=== PATIENT | male | born 1985 | race Caucasian/White ===

== ENCOUNTER 2024-08-11 15:10 | Inpatient (IN) | payer MEDICAID, SELFPAY ==
[2024-08-11 15:15] VITALS: BP 155/104; PULSE 118; RESP 18; TEMP 36.8; O2SAT 95; BMI 34.2
--- NOTE | 2024-08-11 15:44 | XRR_ITS ---
PROCEDURE INFORMATION: Exam: XR Chest Exam date and time: 08/11/2024 3:51 PM Age: 39 years old Clinical indication: Cough and dyspnea; Additional info: Dyspnea/cough TECHNIQUE: Imaging protocol: Radiologic exam of the chest. Views: 1 view. COMPARISON: No relevant prior studies available. FINDINGS: Lungs: No consolidation. Probable small calcified granulomas in the right upper and lower lobes. Pleural spaces: No pleural effusion. No pneumothorax. Heart/Mediastinum: No cardiomegaly. Bones/joints: No acute findings. XR/XR chest 1V portable [id number] IMPRESSION: No acute chest findings.
--- NOTE | 2024-08-11 15:44 | PC.PHAR ---
called both pharmacies mainor kenny picked them up in 7-8 months
--- NOTE | 2024-08-11 15:48 | W.ED.PSYCHS ---
HPI - Psych General: Chief Complaint: Psychiatric Symptoms Stated Complaint: Off of Suboxon feeling unwell Time Seen by Provider: 08/11/24 15:26 History of Present Illness: 39-year-old male present to the emergency room complaining of not feeling well. Patient recently been in a sober living evidently he moved to this area to work. He was on Suboxone while at sober living but did not make arrangements to continue the Suboxone once he moved here. He has been off the Suboxone for several days she has had nausea and vomiting states he cannot think clearly. He has been confused and disoriented. He is also began having suicidal thoughts he is supposed to be on clonidine and Effexor per his report we are still working to verify this. According to his pharmacy search she was also on paliperidone extended release 3 mg. He has been out of all of these medicines for several days. Related Data Home Medications Medication Instructions Recorded Confirmed buprenorphine 8 mg-naloxone 2 mg See Rx Instructions .Route .COMPLEX 08/11/24 08/11/24 sublingual film (Suboxone) clonazepam 1 mg tablet 1 mg PO BID 08/11/24 08/11/24 Allergies Allergy/AdvReac Type Severity Reaction Status Date / Time No Known Allergies Allergy Verified 08/11/24 15:23 Review of Systems Const: Denies: fever(s) or chills Card: Denies: chest pain Resp: Denies: dyspnea GI: Reports: nausea and vomiting; Denies: abdominal pain : Denies: dysuria, urinary frequency or urinary urgency Musc: Denies: neck pain or back pain Skin/Breast: Denies: rash Physical Exam Const: COMMON NORMALS: no acute distress GENERAL APPEARANCE: cooperative and comfortable ORIENTATION/CONSCIOUSNESS: Yes awake, Yes oriented to person, Yes oriented to place and Yes oriented to time HENMT: COMMON NORMALS: normocephalic, atraumatic and hearing grossly normal bilaterally HEAD & SCALP: normocephalic and atraumatic Resp: COMMON NORMALS: normal respiratory effort, No retractions, No use of accessory muscles and clear to auscultation bilaterally AUSCULTATION: clear to auscultation bilaterally Cardio: COMMON NORMALS: regular rate, regular rhythm and No murmurs present (Cardio) RATE: regular rate RHYTHM: regular rhythm GI: COMMON NORMALS: Soft to palpation and No hepatosplenomegaly present AUSCULTATION: Yes normoactive bowel sounds PALPATION: Yes Soft to palpation, No Tenderness to palpation present (GI), No Guarding due to palpation present (GI) and Yes No hepatosplenomegaly present Extremity: COMMON NORMALS: normal to inspection, capillary refill normal, no clubbing, cyanosis or edema, no calf tenderness and no pedal edema Neuro: SENSORIUM/ORIENTATION: Yes oriented to person, Yes oriented to place and Yes oriented to time OTHER: No focal neurologic deficits Skin: COMMON NORMALS: no rashes or lesions noted GENERAL SKIN EXAM: no rashes or lesions noted Course Vital Signs: Vital signs: Vital Signs Temperature 98.7 F 08/11/24 17:15 Pulse Rate 96 08/11/24 17:15 Respiratory Rate 18 08/11/24 17:15 Blood Pressure 128/84 08/11/24 17:15 Pulse Oximetry 94 08/11/24 17:15 Oxygen Delivery Me thod Room Air 08/11/24 15:15 MDM - Psych Medical Decision Making Admit for suicidal ideation. I think is exacerbated by him being off of his medications and off of his Suboxone. According to pharmacy records he was also previously on paliperidone which she is also not been taking. Will add admit the patient to MPU under 96-hour hold discussed with Dr. Murray he is in agreement orders written Lab Data I reviewed the patient's lab results. 08/11/24 15:49 08/11/24 15:49 Radiology Impressions Chest X-Ray 08/11/24 15:44 IMPRESSION: No acute chest findings. Laboratory Results WBC 6.90 10^3/uL (3.29-11.43) 08/11/24 15:49 RBC 4.95 10^6/uL (3.85-5.65) 08/11/24 15:49 Hgb 15.60 g/dL (11.27-16.99) 08/11/24 15:49 Hct 45.6 % (37-53) 08/11/24 15:49 MCV 92.1 fl (82-101) 08/11/24 15:49 MCH 31.5 pg (27-33) 08/11/24 15:49 MCHC 34.2 g/dL (30-55) 08/11/24 15:49 RDW 12.0 % (12.1-15.1) L 08/11/24 15:49 Plt Count 247 10^3/cmm (157-399) 08/11/24 15:49 MPV 9.7 fL (7.4-10.4) 08/11/24 15:49 Neut % (Auto) 72.1 % 08/11/24 15:49 Lymph % (Auto) 19.3 % 08/11/24 15:49 [place] % (Auto) 6.1 % 08/11/24 15:49 Eos % (Auto) 1.2 % 08/11/24 15:49 Baso % (Auto) 0.9 % 08/11/24 15:49 Neut # (Auto) 4.98 10^3/uL (1.8-7.7) 08/11/24 15:49 Lymph # (Auto) 1.3 10^3/uL (0.8-4.8) 08/11/24 15:49 [place] # (Auto) 0.4 10^3/uL (0.2-0.9) 08/11/24 15:49 Eos # (Auto) 0.1 10^3/uL (0.0-0.8) 08/11/24 15:49 Baso # (Auto) 0.1 10^3/uL (0.0-0.1) 08/11/24 15:49 Nucleated RBC % (auto) 0 % 08/11/24 15:49 Nucleated RBCs # 0.0 /100WBC 08/11/24 15:49 Sodium 138 mmol/L (136-145) 08/11/24 15:49 Potassium 3.9 mmol/L (3.5-5.1) 08/11/24 15:49 Chloride 100 mmol/L (98-107) 08/11/24 15:49 Carbon Dioxide 19 mmol/L (22-29) L 08/11/24 15:49 Anion Gap 22.9 (5-19) H 08/11/24 15:49 BUN 19 mg/dL (6-20) 08/11/24 15:49 Creatinine 0.8 mg/dL (0.7-1.2) 08/11/24 15:49 GFR Calculation 107.6 mL/min (90-130) 08/11/24 15:49 Glucose 85 mg/dL (65-115) 08/11/24 15:49 Calculated Osmolality 288 mOsm/kg (285-295) 08/11/24 15:49 Calcium 8.9 mg/dL (8.5-10.5) 08/11/24 15:49 Total Bilirubin 0.6 mg/dL (0.15-1.2) 08/11/24 15:49 AST 22 U/L (0-40) 08/11/24 15:49 ALT 22 U/L (0-41) 08/11/24 15:49 Alkaline Phosphatase 51 U/L (40-130) 08/11/24 15:49 Total Protein 7.2 g/dL (6.6-8.7) 08/11/24 15:49 Albumin 4.1 g/dL (3.5-5.2) 08/11/24 15:49 Globulin 3.1 g/dL (1.3-4.6) 08/11/24 15:49 Salicylates < 0.3 mg/dL (3-10) L 08/11/24 15:49 Acetaminophen < 5.0 ug/mL (10-30) L 08/11/24 15:49 All radiology interpretation(s) finalized by discharge Discharge Plan Discharge Patient Disposition: Admitted As Inpatient Admit Provider: Jagjit Lam Clinical Impression: Suicidal ideation, Depression Condition: Stable Coding Level of Care Code ED Refrigeration Unit Repairer for Eric Fritz
[2024-08-11 15:55] LABS: Basophils # 0.1 10^3/uL (0.0-0.1); Basophils % 0.9 %; Eosinophils # 0.1 10^3/uL (0.0-0.8); Eosinophils % 1.2 %; Hematocrit 45.6 % (37-53); Lymphocytes # 1.3 10^3/uL (0.8-4.8); Lymphocytes % 19.3 %; Mean Corpuscular HGB Conc 34.2 g/dL (30-55); Mean Corpuscular Hemoglobin 31.5 pg (27-33); Mean Corpuscular Volume 92.1 fl (82-101); Mean Platelet Volume 9.7 fL (7.4-10.4); Monocytes # 0.4 10^3/uL (0.2-0.9); Monocytes % 6.1 %; Neutrophils # 4.98 10^3/uL (1.8-7.7); Neutrophils % 72.1 %; Nucleated Red Blood Cells % 0 %; Platelet Count 247 10^3/cmm (157-399); Red Blood Count 4.95 10^6/uL (3.85-5.65)
[2024-08-11 16:12] LABS: Alanine Aminotransferase 22 U/L (0-41); Albumin Level 4.1 g/dL (3.5-5.2); Alkaline Phosphatase 51 U/L (40-130); Anion Gap 22.9 (5-19); Aspartate Amino Transferase 22 U/L (0-40); Blood Urea Nitrogen 19 mg/dL (6-20); Calcium 8.9 mg/dL (8.5-10.5); Carbon Dioxide 19 mmol/L (22-29); Chloride 100 mmol/L (98-107); Creatinine Clr Calc Pharmacy 148.1915; Globulin 3.1 g/dL (1.3-4.6); Glomerular Filtration Rate 107.6 mL/min (90-130); Glucose 85 mg/dL (65-115); Osmolality Calculated 288 mOsm/kg (285-295); Potassium 3.9 mmol/L (3.5-5.1); Sodium 138 mmol/L (136-145); Total Bilirubin 0.6 mg/dL (0.15-1.2); Total Protein 7.2 g/dL (6.6-8.7)
[2024-08-11 16:13] LABS: Acetaminophen < 5.0 ug/mL (10-30); Salicylate < 0.3 mg/dL (3-10)
--- NOTE | 2024-08-11 16:23 | ECG_ITS ---
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 [email or web address]
[2024-08-11] MEDS: OLANZapine 10 mg TABLET PO (16:36)
[2024-08-11 17:15] VITALS: BP 128/84; BP 155/104; PULSE 118; PULSE 96; RESP 18; TEMP 37.1; O2SAT 94; O2SAT 95
[2024-08-11] MEDS: baclofen 10 mg Tablet PO (18:08)
[2024-08-11] MEDS: propranolol 20 mg Tablet PO (18:08)
[2024-08-11 18:12] LABS: Amphetamines Screen Urine Positive (Negative); Barbiturates Screen Urine Negative (Negative); Benzodiazepines Screen Urine Positive (Negative); Cocaine Screen Urine Negative (Negative); Opiate Screen Urine Negative (Negative); PCP Screen Urine Negative (Negative); THC Screen Urine Positive (Negative)
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
--- NOTE | 2024-08-11 18:50 | PC.NURSE ---
96 hr rights reviewed with patient @1635 with assistance of [facility] security controls assessor Lai Norris All education reviewed. Only verbalized concern stated by pt was if his meds ordered by an [facility] primary care physician would be ordered for him while he is inpatient. HS educated that once admitted and transferred down to NPU bed assignment, and once the psychiatrist does his initial intake, meds would be ordered based off patient needs and history. Patient copy left @bedside with patient. Pt provided with a sandwich and soda while waiting on dinner tray to arrive. No further needs at this time.
[2024-08-11 19:28] LABS: Alcohol Level < 10 mg/dL (0-10)
[2024-08-11 19:52] VITALS: BP 103/68; PULSE 69; RESP 18; TEMP 36.7; O2SAT 95
[2024-08-11] MEDS: hyDROXYzine 25 mg Capsule 50 MG PO (21:54)
[2024-08-11] MEDS: doxepin 50 mg Capsule PO (21:54)
[2024-08-12 06:00] VITALS: BP 110/73; PULSE 54; RESP 17; O2SAT 94
[2024-08-12] MEDS: venlafaxine ER (24HR) 37.5 mg Capsule PO (08:22)
[2024-08-12 14:00] VITALS: BP 123/69; PULSE 58; RESP 18; TEMP 36.8; O2SAT 95
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
[2024-08-12 19:43] VITALS: BP 109/57; PULSE 66; RESP 17; TEMP 37.2; O2SAT 96
[2024-08-12] MEDS: hyDROXYzine 25 mg Capsule 50 MG PO (23:22)
[2024-08-12] MEDS: doxepin 50 mg Capsule PO (23:22)
[2024-08-13] MEDS: OLANZapine 5 mg ODT PO ×2 (00:32→17:11)
[2024-08-13] MEDS: baclofen 10 mg Tablet PO ×2 (00:34→09:26)
[2024-08-13 06:00] VITALS: BP 108/67; PULSE 60; RESP 17; TEMP 36.7; O2SAT 94
[2024-08-13] MEDS: propranolol 20 mg Tablet PO (09:26)
[2024-08-13] MEDS: venlafaxine ER (24HR) 37.5 mg Capsule PO (09:26)
--- NOTE | 2024-08-13 11:14 | P.NPUPN_ITS ---
Subjective NPU 2 Subjective: Patient presented today reporting that he is feeling all right. He reports that overall restarting the medication is felt helpful and he denied any concerns with that. He continues to lobby for restarting Suboxone and we continue to discuss our policy not to start it without verification of dosing and when his last dose had been. Or he is when his last prescription was. Otherwise he denied any side effects of medication. Mental Status Exam 2 MSE Comments: This is an obese white male in hospital scrubs with limited grooming and eye contact. No abnormal movements except for psychomotor retardation. Mostly cooperative with exam in mild to moderate distress. Speech was slightly decreased rate and volume. Mood described as okay, affect subdued. Thought process linear. Thought content: Patient denied current suicidal ideation but endorsed that leading to his hospitalization, he denied homicidal ideation, there were no delusions reported but paranoia and guardedness noted, he denied active auditory visual hallucinations at this time but has dealt with that in the past. Attention and concentration were limited and memory appeared mostly reliable but none were formally tested. He is alert and oriented times person and place. Insight and judgment are limited and impulse control impaired. Vitals/I&O/Wt Last Vital Signs Temp 98.0 F 08/13/24 06:00 Pulse 60 08/13/24 06:00 Resp 17 08/13/24 06:00 BP 108/67 08/13/24 06:00 Pulse Ox 94 08/13/24 06:00 O2 Del Method Room Air 08/12/24 14:00 Weight last 48 hrs Weight 98.611 kg Weight 105.233 kg Data NPU 08/11/24 15:49 08/11/24 15:49 A&P Assessment and plan (1) Suicidal ideation: (2) Depression: (3) Anxiety: (4) Opioid use disorder, moderate, dependence: (5) Cannabis use disorder, moderate, dependence: (6) Methamphetamine use disorder, moderate, dependence: Plan This is a 39-year-old white male with a reported history of anxiety, depression, addiction and recent lethality and discontinuation of his medication with increase in symptoms leading to his hospitalization. The patient is experiencing substance use disorder and psychiatric conditions, including depression and anxiety. He has recently discontinued his pharmacotherapy and is not experiencing symptomatic improvement. He has a history of suicidal ideation and severe anxiety, including paranoia. He also reported experiencing obsessive- compulsive disorder-like symptoms. He has a family history of psychiatric disorders and substance use disorder on both maternal and paternal sides. 1. Restarted medications. 2. Awaiting confirmation to consider restarting Suboxone. 3. Encourage individual, group and milieu therapy. 4. Continue every 15 minute checks for safety. 5. Encourage sober living treatment after discharge at the highest level of care to which he is willing to commit. 6. Obtain collateral information. Involuntary Hold Information 2 96 Hour Hold: 96 Hour Involuntary Admission: Yes 96 Hour Hold Ending Date: 08/17/24 96 Hour Hold Ending Time: 16:30 Other Hold: Hold End Date: 08/17/24 Attestations NPU 2 Medical Necessity Statement*: Inpatient hospitalization is medically necessary and the clinically appropriate intervention at this time. We will monitor/initiate medications and make changes as indicated. Likely length of stay 5 to 7 days. Coding Level of Care Code Acute Code for [facility] Fwd Diagnoses Suicidal ideation R45.851 Depression F32.A Anxiety F41.9 Opioid use disorder, moderate, dependence F11.20 Cannabis use disorder, moderate, dependence F12.20 Methamphetamine use disorder, moderate, dependence F15.20
[2024-08-13 13:46] VITALS: BP 107/69; PULSE 62; RESP 16; TEMP 36.9; O2SAT 94
[2024-08-13 20:25] VITALS: BP 120/58; PULSE 58; RESP 18; TEMP 36.8; O2SAT 94
[2024-08-14 06:00] VITALS: BP 139/80; PULSE 60; RESP 16; TEMP 36.7; O2SAT 96
[2024-08-14] MEDS: venlafaxine ER (24HR) 37.5 mg Capsule PO (08:25)
--- NOTE | 2024-08-14 11:14 | W.PM.NPUPNS ---
Subjective NPU Subjective: Patient presented today reporting that he is doing okay. He was pleased that the information surrounding his medication, specifically his Suboxone was identified allowing that to be restarted. He reports that he is glad that he came to the hospital and is taking his medication and is hoping to feel better soon. He denied any side effects to his medication. Mental Status Exam MSE Comments: This is an obese white male in hospital scrubs with limited grooming and eye contact. No abnormal movements except for psychomotor retardation. Mostly cooperative with exam in mild to moderate distress. Speech was slightly decreased rate and volume. Mood described as okay, affect subdued. Thought process linear. Thought content: Patient denied current suicidal ideation but endorsed that leading to his hospitalization, he denied homicidal ideation, there were no delusions reported but paranoia and guardedness noted, he denied active auditory visual hallucinations at this time but has dealt with that in the past. Attention and concentration were limited and memory appeared mostly reliable but none were formally tested. He is alert and oriented times person and place. Insight and judgment are limited and impulse control impaired. Vitals/I&O/Wt Last Vital Signs Temp 98.1 F 08/14/24 06:00 Pulse 60 08/14/24 06:00 Resp 16 08/14/24 06:00 BP 139/80 08/14/24 06:00 Pulse Ox 96 08/14/24 06:00 O2 Del Method Room Air 08/13/24 13:46 Weight last 48 hrs Weight 98.611 kg Data NPU 08/11/24 15:49 08/11/24 15:49 A&P Assessment and plan (1) Suicidal ideation: (2) Depression: (3) Anxiety: (4) Opioid use disorder, moderate, dependence: (5) Cannabis use disorder, moderate, dependence: (6) Methamphetamine use disorder, moderate, dependence: Plan This is a 39-year-old white male with a reported history of anxiety, depression, addiction and recent lethality and discontinuation of his medication with increase in symptoms leading to his hospitalization. The patient is experiencing substance use disorder and psychiatric conditions, including depression and anxiety. He has recently discontinued his pharmacotherapy and is not experiencing symptomatic improvement. He has a history of suicidal ideation and severe anxiety, including paranoia. He also reported experiencing obsessive-compulsive disorder-like symptoms. He has a family history of psychiatric disorders and substance use disorder on both maternal and paternal sides. 1. Restarted medications. 2. Awaiting confirmation to consider restarting Suboxone. We were able to confirm his Suboxone dose and him having an active prescription. So that was restarted as well. 3. Encourage individual, group and milieu therapy. 4. Continue every 15 minute checks for safety. 5. Encourage sober living treatment after discharge at the highest level of care to which he is willing to commit. 6. Obtain collateral information. Involuntary Hold Information 96 Hour Hold: 96 Hour Involuntary Admission: Yes 96 Hour Hold Ending Date: 08/17/24 96 Hour Hold Ending Time: 16:30 Other Hold: Hold End Date: 08/17/24 Attestations NPU Medical Necessity Statement*: Inpatient hospitalization is medically necessary and the clinically appropriate intervention at this time. We will monitor/initiate medications and make changes as indicated. Likely length of stay 5 to 7 days. Coding Level of Care Code Acute Code for [facility] Fwd Diagnoses Suicidal ideation R45.851 Depression F32.A Anxiety F41.9 Opioid use disorder, moderate, dependence F11.20 Cannabis use disorder, moderate, dependence F12.20 Methamphetamine use disorder, moderate, dependence F15.20
[2024-08-14] MEDS: hyDROXYzine 25 mg Capsule 50 MG PO ×2 (11:58→23:11)
[2024-08-14 14:00] VITALS: BP 138/71; PULSE 76; RESP 16; TEMP 36.6; O2SAT 96
[2024-08-14] MEDS: nicotine 4 mg lozenge MUCOUS MEM ×2 (18:19→22:04)
[2024-08-14] MEDS: nicotine 2 mg Gum BUCCAL (19:46)
[2024-08-14] MEDS: doxepin 50 mg Capsule PO (19:46)
[2024-08-14] MEDS: propranolol 20 mg Tablet PO (19:46)
[2024-08-14] MEDS: buprenorphine-naloxone 4-1 mg Film 2 EACH SUBLINGUAL (19:47)
[2024-08-14 20:09] VITALS: BP 103/79; PULSE 83; RESP 16; TEMP 36.9; O2SAT 98
[2024-08-14 22:00] VITALS: BP 121/81; PULSE 101; RESP 12; TEMP 36.9; O2SAT 91
[2024-08-15] MEDS: OLANZapine 5 mg ODT PO ×2 (00:33→11:39)
[2024-08-15 06:00] VITALS: BP 80/47; PULSE 57; RESP 16; TEMP 36.4; O2SAT 92
[2024-08-15] MEDS: nicotine 4 mg lozenge MUCOUS MEM ×4 (06:38→17:53)
[2024-08-15] MEDS: buprenorphine-naloxone 4-1 mg Film 2 EACH SUBLINGUAL ×3 (08:40→20:38)
[2024-08-15] MEDS: venlafaxine ER (24HR) 37.5 mg Capsule PO (08:40)
[2024-08-15] MEDS: baclofen 10 mg Tablet PO (08:40)
[2024-08-15] MEDS: propranolol 20 mg Tablet PO ×2 (12:37→20:46)
[2024-08-15] MEDS: nicotine 2 mg Gum BUCCAL (12:38)
--- NOTE | 2024-08-15 13:35 | P.NPUPN_ITS ---
Subjective NPU 2 Subjective: Patient presented today reporting that he is doing okay. He continues to express concerns about anxiety and we discussed being uncomfortable with any plans for controlled substances. He reports that the Vistaril has not been affected. We discussed the risks, benefits and alternatives to considering Neurontin and he understood and agreed to proceed as is documented in this note. He reported previously being on Lyrica which we discussed that we would likely not be prescribing. He denied any side effects to his medications. Mental Status Exam 2 MSE Comments: This is an obese white male in hospital scrubs with limited grooming and eye contact. No abnormal movements except for psychomotor retardation. Mostly cooperative with exam in mild to moderate distress. Speech was slightly decreased rate and volume. Mood described as okay, affect subdued. Thought process linear. Thought content: Patient denied current suicidal ideation but endorsed that leading to his hospitalization, he denied homicidal ideation, there were no delusions reported but paranoia and guardedness noted, he denied active auditory visual hallucinations at this time but has dealt with that in the past. Attention and concentration were limited and memory appeared mostly reliable but none were formally tested. He is alert and oriented times person and place. Insight and judgment are limited and impulse control impaired. Vitals/I&O/Wt Last Vital Signs Temp 97.5 F L 08/15/24 06:00 Pulse 57 L 08/15/24 06:00 Resp 16 08/15/24 06:00 BP 80/47 08/15/24 06:00 Pulse Ox 92 08/15/24 06:00 O2 Del Method Room Air 08/15/24 06:00 Data NPU 08/11/24 15:49 08/11/24 15:49 A&P Assessment and plan (1) Suicidal ideation: (2) Depression: (3) Anxiety: (4) Opioid use disorder, moderate, dependence: (5) Cannabis use disorder, moderate, dependence: (6) Methamphetamine use disorder, moderate, dependence: Plan This is a 39-year-old white male with a reported history of anxiety, depression, addiction and recent lethality and discontinuation of his medication with increase in symptoms leading to his hospitalization. The patient is experiencing substance use disorder and psychiatric conditions, including depression and anxiety. He has recently discontinued his pharmacotherapy and is not experiencing symptomatic improvement. He has a history of suicidal ideation and severe anxiety, including paranoia. He also reported experiencing obsessive- compulsive disorder-like symptoms. He has a family history of psychiatric disorders and substance use disorder on both maternal and paternal sides. 1. Restarted medications. Will consider possibly starting Neurontin for anxiety. Concerns about his affinity for medications that have risk of abuse as solutions for his symptoms exists. 2. Awaiting confirmation to consider restarting Suboxone. We were able to confirm his Suboxone dose and him having an active prescription. So that was restarted as well. 3. Encourage individual, group and milieu therapy. 4. Continue every 15 minute checks for safety. 5. Encourage sober living treatment after discharge at the highest level of care to which he is willing to commit. 6. Obtain collateral information. Involuntary Hold Information 2 96 Hour Hold: 96 Hour Involuntary Admission: Yes 96 Hour Hold Ending Date: 08/17/24 96 Hour Hold Ending Time: 16:30 Other Hold: Hold End Date: 08/17/24 Attestations NPU 2 Medical Necessity Statement*: Inpatient hospitalization is medically necessary and the clinically appropriate intervention at this time. We will monitor/initiate medications and make changes as indicated. Likely length of stay 4-6 days. Coding Level of Care Code Acute Code for g Fwd Diagnoses Suicidal ideation R45.851 Depression F32.A Anxiety F41.9 Opioid use disorder, moderate, dependence F11.20 Cannabis use disorder, moderate, dependence F12.20 Methamphetamine use disorder, moderate, dependence F15.20
[2024-08-15 14:00] VITALS: BP 113/75; PULSE 63; RESP 16; TEMP 36.7; O2SAT 96
[2024-08-15] MEDS: hyDROXYzine 25 mg Capsule 50 MG PO (17:54)
[2024-08-15 19:46] VITALS: BP 152/87; PULSE 67; RESP 18; TEMP 36.6; O2SAT 96
[2024-08-15] MEDS: doxepin 50 mg Capsule PO (20:46)
[2024-08-16 06:00] VITALS: BP 100/64; PULSE 60; RESP 16; TEMP 37; O2SAT 96
[2024-08-16] MEDS: buprenorphine-naloxone 4-1 mg Film 2 EACH SUBLINGUAL ×3 (08:44→20:35)
[2024-08-16] MEDS: venlafaxine ER (24HR) 37.5 mg Capsule PO (08:44)
[2024-08-16] MEDS: nicotine 4 mg lozenge MUCOUS MEM ×3 (10:07→14:25)
[2024-08-16] MEDS: OLANZapine 5 mg ODT PO (11:14)
[2024-08-16] MEDS: hyDROXYzine 25 mg Capsule 50 MG PO ×2 (12:44→20:34)
[2024-08-16] MEDS: haloperidol 5 mg Tablet PO (13:48)
[2024-08-16 14:00] VITALS: BP 124/74; PULSE 66; RESP 18; TEMP 36.6; O2SAT 95
--- NOTE | 2024-08-16 15:18 | PC.NURSE ---
ORDERS RECEIVED FOR COVID TEST FOR POSSIBLE PLACEMENT. ORDERS PLACED AND NURSE NOTIFIED TO COLLECT.
[2024-08-16 16:17] LABS: SARS Covid-2 Antigen Negative (Negative)
--- NOTE | 2024-08-16 17:57 | P.NPUPN_ITS ---
Subjective NPU 2 Subjective: Patient presented today reporting that he is trying to get into his previous program but now he has learned that he has to go to the bottom of the list since it is a subsidiary in a different area. He continues to have concerns about his sobriety if he does not go to a new program. He continues to endorse anxiety and we discussed the risks, benefits and alternatives of initiating Neurontin 100 mg p.o. 3 times daily he understood and agreed to proceed as is documented in his note he denied any side effects of medication. Mental Status Exam 2 MSE Comments: This is an obese white male in hospital scrubs with limited grooming and eye contact. No abnormal movements except for psychomotor retardation. Mostly cooperative with exam in mild distress. Speech was slightly decreased rate and volume. Mood described as okay, affect subdued. Thought process linear. Thought content: Patient denied current suicidal ideation but endorsed that leading to his hospitalization, he denied homicidal ideation, there were no delusions reported but paranoia and guardedness noted, he denied active auditory visual hallucinations at this time but has dealt with that in the past. Attention and concentration were limited and memory appeared mostly reliable but none were formally tested. He is alert and oriented times person and place. Insight and judgment are limited and impulse control impaired. Vitals/I&O/Wt Last Vital Signs Temp 97.9 F 08/16/24 14:00 Pulse 66 08/16/24 14:00 Resp 18 08/16/24 14:00 BP 124/74 08/16/24 14:00 Pulse Ox 95 08/16/24 14:00 O2 Del Method Room Air 08/16/24 06:00 Data NPU 08/11/24 15:49 08/11/24 15:49 A&P Assessment and plan (1) Suicidal ideation: (2) Depression: (3) Anxiety: (4) Opioid use disorder, moderate, dependence: (5) Cannabis use disorder, moderate, dependence: (6) Methamphetamine use disorder, moderate, dependence: Plan This is a 39-year-old white male with a reported history of anxiety, depression, addiction and recent lethality and discontinuation of his medication with increase in symptoms leading to his hospitalization. The patient is experiencing substance use disorder and psychiatric conditions, including depression and anxiety. He has recently discontinued his pharmacotherapy and is not experiencing symptomatic improvement. He has a history of suicidal ideation and severe anxiety, including paranoia. He also reported experiencing obsessive- compulsive disorder-like symptoms. He has a family history of psychiatric disorders and substance use disorder on both maternal and paternal sides. 1. Restarted medications. Will consider possibly starting Neurontin for anxiety. Concerns about his affinity for medications that have risk of abuse as solutions for his symptoms exists. 2. Awaiting confirmation to consider restarting Suboxone. We were able to confirm his Suboxone dose and him having an active prescription. So that was restarted as well. Initiate Neurontin 100 mg p.o. 3 times daily 3. Encourage individual, group and milieu therapy. 4. Continue every 15 minute checks for safety. 5. Encourage sober living treatment after discharge at the highest level of care to which he is willing to commit. 6. Obtain collateral information. Involuntary Hold Information 2 96 Hour Hold: 96 Hour Involuntary Admission: Yes 96 Hour Hold Ending Date: 08/17/24 96 Hour Hold Ending Time: 16:30 Other Hold: Hold End Date: 08/17/24 Attestations NPU 2 Medical Necessity Statement*: Inpatient hospitalization is medically necessary and the clinically appropriate intervention at this time. We will monitor/initiate medications and make changes as indicated. Likely length of stay 2-5 days. Coding Level of Care Code Acute Code for [facility] Fwd Diagnoses Suicidal ideation R45.851 Depression F32.A Anxiety F41.9 Opioid use disorder, moderate, dependence F11.20 Cannabis use disorder, moderate, dependence F12.20 Methamphetamine use disorder, moderate, dependence F15.20
[2024-08-16] MEDS: propranolol 20 mg Tablet PO (20:34)
[2024-08-16] MEDS: doxepin 50 mg Capsule PO (20:34)
[2024-08-16 20:54] VITALS: BP 102/64; PULSE 68; RESP 18; TEMP 36.6; O2SAT 96
[2024-08-17 06:00] VITALS: BP 105/70; PULSE 60; RESP 18; TEMP 36.4; O2SAT 96
[2024-08-17] MEDS: gabapentin 100 mg Capsule PO ×3 (09:18→20:54)
[2024-08-17] MEDS: buprenorphine-naloxone 4-1 mg Film 2 EACH SUBLINGUAL ×3 (09:18→20:54)
[2024-08-17] MEDS: hyDROXYzine 25 mg Capsule 50 MG PO ×3 (09:18→20:54)
[2024-08-17] MEDS: venlafaxine ER (24HR) 37.5 mg Capsule PO (09:18)
[2024-08-17] MEDS: nicotine 4 mg lozenge MUCOUS MEM ×3 (09:18→18:21)
[2024-08-17] MEDS: OLANZapine 5 mg ODT PO (12:31)
[2024-08-17 14:00] VITALS: BP 103/69; PULSE 66; RESP 18; TEMP 37; O2SAT 98
[2024-08-17] MEDS: nicotine 2 mg Gum BUCCAL (15:30)
[2024-08-17] MEDS: haloperidol 5 mg Tablet PO (16:10)
[2024-08-17 20:20] VITALS: BP 107/66; PULSE 67; RESP 17; TEMP 36.7; O2SAT 95
[2024-08-17] MEDS: baclofen 10 mg Tablet PO (20:54)
[2024-08-17] MEDS: doxepin 50 mg Capsule PO (20:54)
--- NOTE | 2024-08-17 21:29 | P.NPUPN_ITS ---
Subjective NPU 2 Subjective: Patient presented today continuing to report making every effort to find a place that he can be discharged to. He continues to report a desire to go to an alternative sober living treatment facility but has had no luck in identifying 1 with the help of the social work team. He continued to endorse anxiety and we discussed the risks, benefits and alternatives of possibly increasing his Neurontin tomorrow and he understood and agreed to proceed as is documented in this note. He denied any side effects to his medication. Mental Status Exam 2 MSE Comments: This is an obese white male in hospital scrubs with limited grooming and eye contact. No abnormal movements except for psychomotor retardation. Mostly cooperative with exam in mild distress. Speech was slightly decreased rate and volume. Mood described as okay, affect subdued. Thought process linear. Thought content: Patient denied current suicidal ideation but endorsed that leading to his hospitalization, he denied homicidal ideation, there were no delusions reported but paranoia and guardedness noted, he denied active auditory visual hallucinations at this time but has dealt with that in the past. Attention and concentration were limited and memory appeared mostly reliable but none were formally tested. He is alert and oriented times person and place. Insight and judgment are limited and impulse control impaired. Vitals/I&O/Wt Last Vital Signs Temp 98.1 F 08/17/24 20:20 Pulse 67 08/17/24 20:20 Resp 17 08/17/24 20:20 BP 107/66 08/17/24 20:20 Pulse Ox 95 08/17/24 20:20 O2 Del Method Room Air 08/17/24 06:00 Data NPU 08/11/24 15:49 08/11/24 15:49 A&P Assessment and plan (1) Suicidal ideation: (2) Depression: (3) Anxiety: (4) Opioid use disorder, moderate, dependence: (5) Cannabis use disorder, moderate, dependence: (6) Methamphetamine use disorder, moderate, dependence: Plan This is a 39-year-old white male with a reported history of anxiety, depression, addiction and recent lethality and discontinuation of his medication with increase in symptoms leading to his hospitalization. The patient is experiencing substance use disorder and psychiatric conditions, including depression and anxiety. He has recently discontinued his pharmacotherapy and is not experiencing symptomatic improvement. He has a history of suicidal ideation and severe anxiety, including paranoia. He also reported experiencing obsessive- compulsive disorder-like symptoms. He has a family history of psychiatric disorders and substance use disorder on both maternal and paternal sides. 1. Restarted medications. Will consider possibly starting Neurontin for anxiety. Concerns about his affinity for medications that have risk of abuse as solutions for his symptoms exists. 2. Awaiting confirmation to consider restarting Suboxone. We were able to confirm his Suboxone dose and him having an active prescription. So that was restarted as well. Initiate Neurontin 100 mg p.o. 3 times daily. Consider increase to 300 mg. 3. Encourage individual, group and milieu therapy. 4. Continue every 15 minute checks for safety. 5. Encourage sober living treatment after discharge at the highest level of care to which he is willing to commit. 6. Obtain collateral information. Involuntary Hold Information 2 96 Hour Hold: 96 Hour Involuntary Admission: Yes 96 Hour Hold Ending Date: 08/17/24 96 Hour Hold Ending Time: 16:30 Other Hold: Hold End Date: 08/17/24 Attestations NPU 2 Medical Necessity Statement*: Inpatient hospitalization is medically necessary and the clinically appropriate intervention at this time. We will monitor/initiate medications and make changes as indicated. Likely length of stay 1-4 days. Coding Level of Care Code Acute Code for [facility] Fwd Diagnoses Suicidal ideation R45.851 Depression F32.A Anxiety F41.9 Opioid use disorder, moderate, dependence F11.20 Cannabis use disorder, moderate, dependence F12.20 Methamphetamine use disorder, moderate, dependence F15.20
[2024-08-18 06:00] VITALS: BP 108/64; PULSE 59; RESP 17; TEMP 36.8; O2SAT 95
[2024-08-18] MEDS: nicotine 4 mg lozenge MUCOUS MEM ×5 (06:13→21:23)
[2024-08-18] MEDS: gabapentin 100 mg Capsule PO ×3 (08:40→21:22)
[2024-08-18] MEDS: venlafaxine ER (24HR) 37.5 mg Capsule PO (08:40)
[2024-08-18] MEDS: buprenorphine-naloxone 4-1 mg Film 2 EACH SUBLINGUAL ×3 (08:40→21:22)
[2024-08-18] MEDS: hyDROXYzine 25 mg Capsule 50 MG PO ×2 (10:14→15:49)
[2024-08-18 14:00] VITALS: BP 145/95; PULSE 78; RESP 18; TEMP 36.7; O2SAT 95
--- NOTE | 2024-08-18 15:24 | P.NPUPN_ITS ---
Subjective NPU 2 Subjective: Patient presented today reporting that he is doing okay but still having significant anxiety. He is working with the social work team on options for residential addiction treatment. He has 2 options but her most recent callback from 1 suggest that it would more likely be Wednesday and he may have a chance to get in the other rehab [facility] but they want no until Wednesday either. He denied any side effects to the medication and we discussed the risks, benefits and alternatives of increasing his Neurontin to 300 mg p.o. 3 times daily and he understood and agreed to proceed as is documented in this note. Mental Status Exam 2 MSE Comments: This is an obese white male in hospital scrubs with limited grooming and eye contact. No abnormal movements except for psychomotor retardation. Mostly cooperative with exam in mild distress. Speech was slightly decreased rate and volume. Mood described as okay, affect subdued. Thought process linear. Thought content: Patient denied current suicidal ideation but endorsed that leading to his hospitalization, he denied homicidal ideation, there were no delusions reported but paranoia and guardedness noted, he denied active auditory visual hallucinations at this time but has dealt with that in the past. Attention and concentration were limited and memory appeared mostly reliable but none were formally tested. He is alert and oriented times person and place. Insight and judgment are limited and impulse control impaired. Vitals/I&O/Wt Last Vital Signs Temp 98.1 F 08/18/24 14:00 Pulse 78 08/18/24 14:00 Resp 18 08/18/24 14:00 BP 145/95 08/18/24 14:00 Pulse Ox 95 08/18/24 14:00 O2 Del Method Room Air 08/18/24 14:00 Data NPU 08/11/24 15:49 08/11/24 15:49 A&P Assessment and plan (1) Suicidal ideation: (2) Depression: (3) Anxiety: (4) Opioid use disorder, moderate, dependence: (5) Cannabis use disorder, moderate, dependence: (6) Methamphetamine use disorder, moderate, dependence: Plan This is a 39-year-old white male with a reported history of anxiety, depression, addiction and recent lethality and discontinuation of his medication with increase in symptoms leading to his hospitalization. The patient is experiencing substance use disorder and psychiatric conditions, including depression and anxiety. He has recently discontinued his pharmacotherapy and is not experiencing symptomatic improvement. He has a history of suicidal ideation and severe anxiety, including paranoia. He also reported experiencing obsessive- compulsive disorder-like symptoms. He has a family history of psychiatric disorders and substance use disorder on both maternal and paternal sides. 1. Restarted medications. Will consider possibly starting Neurontin for anxiety. Concerns about his affinity for medications that have risk of abuse as solutions for his symptoms exists. 2. Awaiting confirmation to consider restarting Suboxone. We were able to confirm his Suboxone dose and him having an active prescription. So that was restarted as well. Initiate Neurontin 100 mg p.o. 3 times daily. Increased to 300 mg p.o. 3 times daily for anxiety and mood stabilization given his addiction issues. 3. Encourage individual, group and milieu therapy. 4. Continue every 15 minute checks for safety. 5. Encourage sober living treatment after discharge at the highest level of care to which he is willing to commit. 6. Obtain collateral information. Involuntary Hold Information 2 96 Hour Hold: 96 Hour Involuntary Admission: Yes 96 Hour Hold Ending Date: 08/17/24 96 Hour Hold Ending Time: 16:30 Other Hold: Hold End Date: 08/17/24 Attestations NPU 2 Medical Necessity Statement*: Inpatient hospitalization is medically necessary and the clinically appropriate intervention at this time. We will monitor/initiate medications and make changes as indicated. Likely length of stay 1-4 days. Coding Level of Care Code Acute Code for [facility] Diagnoses Suicidal ideation R45.851 Depression F32.A Anxiety F41.9 Opioid use disorder, moderate, dependence F11.20 Cannabis use disorder, moderate, dependence F12.20 Methamphetamine use disorder, moderate, dependence F15.20
[2024-08-18] MEDS: OLANZapine 5 mg ODT PO (17:47)
[2024-08-18 21:21] VITALS: BP 122/69; PULSE 80; RESP 17; TEMP 36.7; O2SAT 93
[2024-08-18] MEDS: baclofen 10 mg Tablet PO (21:21)
[2024-08-18] MEDS: doxepin 50 mg Capsule PO (21:21)
[2024-08-19] MEDS: nicotine 4 mg lozenge MUCOUS MEM ×4 (05:35→20:40)
[2024-08-19 06:00] VITALS: BP 129/82; PULSE 63; RESP 18; TEMP 36.4; O2SAT 96
[2024-08-19] MEDS: hyDROXYzine 25 mg Capsule 50 MG PO ×2 (08:02→17:46)
[2024-08-19] MEDS: OLANZapine 5 mg ODT PO ×3 (08:02→20:40)
[2024-08-19] MEDS: buprenorphine-naloxone 4-1 mg Film 2 EACH SUBLINGUAL ×3 (08:50→20:38)
[2024-08-19] MEDS: gabapentin 100 mg Capsule PO ×3 (08:50→20:40)
[2024-08-19] MEDS: venlafaxine ER (24HR) 37.5 mg Capsule PO (08:50)
--- NOTE | 2024-08-19 09:25 | P.NPUPN_ITS ---
Subjective NPU 2 Subjective: Patient presented today reporting that he is doing fine. He reports that he is looking forward to Wednesday and hoping that he will be picked up by one of the 2 programs. We agreed that we would take the opportunity to explore his anxiety and continue with the gabapentin for now and continue to discuss him being careful about the impact of other anxiety medications on his recovery and sobriety. He denied any side effects to the medication. Mental Status Exam 2 MSE Comments: This is an obese white male in hospital scrubs with limited grooming and eye contact. No abnormal movements except for psychomotor retardation. Mostly cooperative with exam in mild distress. Speech was slightly decreased rate and volume. Mood described as okay, affect subdued. Thought process linear. Thought content: Patient denied current suicidal ideation but endorsed that leading to his hospitalization, he denied homicidal ideation, there were no delusions reported but paranoia and guardedness noted, he denied active auditory visual hallucinations at this time but has dealt with that in the past. Attention and concentration were limited and memory appeared mostly reliable but none were formally tested. He is alert and oriented times person and place. Insight and judgment are limited and impulse control impaired. Vitals/I&O/Wt Last Vital Signs Temp 97.6 F 08/19/24 06:00 Pulse 63 08/19/24 06:00 Resp 18 08/19/24 06:00 BP 129/82 08/19/24 06:00 Pulse Ox 96 08/19/24 06:00 O2 Del Method Room Air 08/18/24 14:00 Data NPU 08/11/24 15:49 08/11/24 15:49 A&P Assessment and plan (1) Suicidal ideation: (2) Depression: (3) Anxiety: (4) Opioid use disorder, moderate, dependence: (5) Cannabis use disorder, moderate, dependence: (6) Methamphetamine use disorder, moderate, dependence: Plan This is a 39-year-old white male with a reported history of anxiety, depression, addiction and recent lethality and discontinuation of his medication with increase in symptoms leading to his hospitalization. The patient is experiencing substance use disorder and psychiatric conditions, including depression and anxiety. He has recently discontinued his pharmacotherapy and is not experiencing symptomatic improvement. He has a history of suicidal ideation and severe anxiety, including paranoia. He also reported experiencing obsessive- compulsive disorder-like symptoms. He has a family history of psychiatric disorders and substance use disorder on both maternal and paternal sides. 1. Restarted medications. Will consider possibly starting Neurontin for anxiety. Concerns about his affinity for medications that have risk of abuse as solutions for his symptoms exists. 2. Awaiting confirmation to consider restarting Suboxone. We were able to confirm his Suboxone dose and him having an active prescription. So that was restarted as well. Initiate Neurontin 100 mg p.o. 3 times daily. Increased to 300 mg p.o. 3 times daily for anxiety and mood stabilization given his addiction issues. 3. Encourage individual, group and milieu therapy. 4. Continue every 15 minute checks for safety. 5. Encourage sober living treatment after discharge at the highest level of care to which he is willing to commit. 6. Obtain collateral information. Involuntary Hold Information 2 96 Hour Hold: 96 Hour Involuntary Admission: Yes 96 Hour Hold Ending Date: 08/17/24 96 Hour Hold Ending Time: 16:30 Other Hold: Hold End Date: 08/17/24 Attestations NPU 2 Medical Necessity Statement*: Inpatient hospitalization is medically necessary and the clinically appropriate intervention at this time. We will monitor/initiate medications and make changes as indicated. Likely length of stay 2-4 days. Coding Level of Care Code Acute Code for [facility] Fwd Diagnoses Suicidal ideation R45.851 Depression F32.A Anxiety F41.9 Opioid use disorder, moderate, dependence F11.20 Cannabis use disorder, moderate, dependence F12.20 Methamphetamine use disorder, moderate, dependence F15.20
[2024-08-19] MEDS: calcium carbonate 500 mg Chew Tablet 1000 MG PO ×3 (09:40→22:44)
[2024-08-19] MEDS: propranolol 20 mg Tablet PO ×2 (11:04→20:40)
[2024-08-19 14:00] VITALS: BP 120/78; PULSE 64; RESP 16; TEMP 36.6; O2SAT 94
[2024-08-19] MEDS: nicotine 2 mg Gum BUCCAL (14:25)
[2024-08-19] MEDS: doxepin 50 mg Capsule PO (20:40)
[2024-08-19] MEDS: baclofen 10 mg Tablet PO (20:40)
[2024-08-19 20:41] VITALS: BP 106/62; PULSE 77; RESP 17; TEMP 36.7; O2SAT 95
[2024-08-20 06:00] VITALS: BP 112/78; PULSE 66; RESP 18; TEMP 36.7; O2SAT 95
[2024-08-20 07:37] LABS: Glucose Point of Care 102 mg/dL (70-110)
[2024-08-20] MEDS: buprenorphine-naloxone 4-1 mg Film 2 EACH SUBLINGUAL ×3 (09:37→20:19)
[2024-08-20] MEDS: calcium carbonate 500 mg Chew Tablet 1000 MG PO (09:37)
[2024-08-20] MEDS: venlafaxine ER (24HR) 37.5 mg Capsule PO (09:37)
[2024-08-20] MEDS: gabapentin 100 mg Capsule PO ×3 (09:38→20:19)
[2024-08-20] MEDS: nicotine 4 mg lozenge MUCOUS MEM ×3 (09:38→20:19)
--- NOTE | 2024-08-20 11:24 | P.NPUPN_ITS ---
Subjective NPU 2 Subjective: Patient presented today reporting that he is feeling a little better. He reports his anxiety is getting better as we are using the Neurontin. We discussed the risks, benefits and alternatives of increasing his Neurontin to 300 mg p.o. 3 times daily and he understood and agreed to proceed as is documented in this note. We discussed he and the social work team calling there are 2 possibilities that we have for placement tomorrow. [facility] has acknowledged they may have a bed tomorrow but certainly this week. The other facility said they would likely be able to take him tomorrow. He denied any side effects to medications. Mental Status Exam 2 MSE Comments: This is an obese white male in hospital scrubs with limited grooming and eye contact. No abnormal movements except for psychomotor retardation. Mostly cooperative with exam in mild distress. Speech was slightly decreased rate and volume. Mood described as getting better, affect congruent and less subdued. Thought process linear. Thought content: Patient denied current suicidal ideation but endorsed that leading to his hospitalization, he denied homicidal ideation, there were no delusions reported but paranoia and guardedness noted, he denied active auditory visual hallucinations at this time but has dealt with that in the past. Attention and concentration were limited and memory appeared mostly reliable but none were formally tested. He is alert and oriented times person and place. Insight and judgment are limited and impulse control impaired. Vitals/I&O/Wt Last Vital Signs Temp 98.1 F 08/20/24 06:00 Pulse 66 08/20/24 06:00 Resp 18 08/20/24 06:00 BP 112/78 08/20/24 06:00 Pulse Ox 95 08/20/24 06:00 O2 Del Method Room Air 08/18/24 14:00 Weight last 48 hrs Weight 94.347 kg Data NPU 08/11/24 15:49 08/11/24 15:49 A&P Assessment and plan (1) Suicidal ideation: (2) Depression: (3) Anxiety: (4) Opioid use disorder, moderate, dependence: (5) Cannabis use disorder, moderate, dependence: (6) Methamphetamine use disorder, moderate, dependence: Plan This is a 39-year-old white male with a reported history of anxiety, depression, addiction and recent lethality and discontinuation of his medication with increase in symptoms leading to his hospitalization. The patient is experiencing substance use disorder and psychiatric conditions, including depression and anxiety. He has recently discontinued his pharmacotherapy and is not experiencing symptomatic improvement. He has a history of suicidal ideation and severe anxiety, including paranoia. He also reported experiencing obsessive- compulsive disorder-like symptoms. He has a family history of psychiatric disorders and substance use disorder on both maternal and paternal sides. 1. Restarted medications. Will consider possibly starting Neurontin for anxiety. Concerns about his affinity for medications that have risk of abuse as solutions for his symptoms exists. 2. Awaiting confirmation to consider restarting Suboxone. We were able to confirm his Suboxone dose and him having an active prescription. So that was restarted as well. Initiate Neurontin 100 mg p.o. 3 times daily. Increased to 300 mg p.o. 3 times daily for anxiety and mood stabilization given his addiction issues. 3. Encourage individual, group and milieu therapy. 4. Continue every 15 minute checks for safety. 5. Encourage sober living treatment after discharge at the highest level of care to which he is willing to commit. 6. Obtain collateral information. Involuntary Hold Information 2 96 Hour Hold: 96 Hour Involuntary Admission: Yes 96 Hour Hold Ending Date: 08/17/24 96 Hour Hold Ending Time: 16:30 Other Hold: Hold End Date: 08/17/24 Attestations NPU 2 Medical Necessity Statement*: Inpatient hospitalization is medically necessary and the clinically appropriate intervention at this time. We will monitor/initiate medications and make changes as indicated. Likely length of stay 1-3 days. Coding Level of Care Code Acute Code for [facility] Fwd Diagnoses Suicidal ideation R45.851 Depression F32.A Anxiety F41.9 Opioid use disorder, moderate, dependence F11.20 Cannabis use disorder, moderate, dependence F12.20 Methamphetamine use disorder, moderate, dependence F15.20
--- NOTE | 2024-08-20 11:34 | PC.NURSE ---
@0730 pt sitting on laundry can with head down, then when attempting to get up pt went down on the floor on his bottom. pt stated when he got up his leg was numb from sitting, he denies pain, this dredge lever operator assisted pt up and to bench by phone vital signs taken bp 86/60 temp 97.7 pulse 68 o2 96% room air. manual bp take 96/62 by this dredge lever operator and 94/76 by [facility] [facility]. pt had beads of sweat on forehead and clammy to touch. Accu check preformed -[address] Quiroga notified @0741 monitor pt and to push oral fluids through out day. pt states feeling better.
[2024-08-20 14:00] VITALS: BP 109/77; PULSE 90; RESP 17; TEMP 36.7; O2SAT 95
[2024-08-20] MEDS: propranolol 20 mg Tablet PO (20:18)
[2024-08-20] MEDS: doxepin 50 mg Capsule PO (20:19)
[2024-08-20 21:40] VITALS: BP 119/80; PULSE 91; RESP 18; TEMP 36.8; O2SAT 95
[2024-08-21] MEDS: hyDROXYzine 25 mg Capsule 50 MG PO ×2 (01:08→16:35)
[2024-08-21 05:25] VITALS: BP 106/74; PULSE 55; RESP 17; TEMP 36.6; O2SAT 95
[2024-08-21] MEDS: nicotine 4 mg lozenge MUCOUS MEM ×5 (06:02→19:58)
[2024-08-21] MEDS: venlafaxine ER (24HR) 37.5 mg Capsule PO (08:02)
[2024-08-21] MEDS: gabapentin 300 mg Capsule PO ×3 (08:02→20:20)
[2024-08-21] MEDS: buprenorphine-naloxone 4-1 mg Film 2 EACH SUBLINGUAL ×3 (08:02→20:20)
[2024-08-21] MEDS: calcium carbonate 500 mg Chew Tablet 1000 MG PO ×3 (10:56→20:49)
--- NOTE | 2024-08-21 10:57 | PC.NURSE ---
PRN TUMS 2 CHEWABLE TABS GIVEN PO PER PT C/O INDIGESTION
--- NOTE | 2024-08-21 11:02 | W.PM.NPUPNS ---
Subjective NPU Subjective: Patient presented today reporting that he is doing all right. He got up to make calls like he was supposed to and we got a response from [facility] that he will be excepted by them tomorrow. He reports he is doing well with the medications and is excited about getting excepted to a rehab. We discussed the risks, benefits and alternatives of discharge tomorrow with his current medications and he understood and agreed to proceed as is documented in this note. He denied any side effects of his medication. Mental Status Exam MSE Comments: This is an obese white male in hospital scrubs with limited grooming and eye contact. No abnormal movements except for psychomotor retardation. Mostly cooperative with exam in mild distress. Speech was slightly decreased rate and volume. Mood described as getting better, affect congruent and less subdued. Thought process linear. Thought content: Patient denied current suicidal ideation but endorsed that leading to his hospitalization, he denied homicidal ideation, there were no delusions reported but paranoia and guardedness noted, he denied active auditory visual hallucinations at this time but has dealt with that in the past. Attention and concentration were limited and memory appeared mostly reliable but none were formally tested. He is alert and oriented times person and place. Insight and judgment are limited and impulse control impaired. Vitals/I&O/Wt Last Vital Signs Temp 97.9 F 08/21/24 05:25 Pulse 55 L 08/21/24 05:25 Resp 17 08/21/24 05:25 BP 106/74 08/21/24 05:25 Pulse Ox 95 08/21/24 05:25 O2 Del Method Room Air 08/18/24 14:00 Weight last 48 hrs Weight 94.347 kg Data NPU 08/11/24 15:49 08/11/24 15:49 A&P Assessment and plan (1) Suicidal ideation: (2) Depression: (3) Anxiety: (4) Opioid use disorder, moderate, dependence: (5) Cannabis use disorder, moderate, dependence: (6) Methamphetamine use disorder, moderate, dependence: Plan This is a 39-year-old white male with a reported history of anxiety, depression, addiction and recent lethality and discontinuation of his medication with increase in symptoms leading to his hospitalization. The patient is experiencing substance use disorder and psychiatric conditions, including depression and anxiety. He has recently discontinued his pharmacotherapy and is not experiencing symptomatic improvement. He has a history of suicidal ideation and severe anxiety, including paranoia. He also reported experiencing obsessive-compulsive disorder-like symptoms. He has a family history of psychiatric disorders and substance use disorder on both maternal and paternal sides. 1. Restarted medications. Will consider possibly starting Neurontin for anxiety. Concerns about his affinity for medications that have risk of abuse as solutions for his symptoms exists. 2. Awaiting confirmation to consider restarting Suboxone. We were able to confirm his Suboxone dose and him having an active prescription. So that was restarted as well. Initiate Neurontin 100 mg p.o. 3 times daily. Increased to 300 mg p.o. 3 times daily for anxiety and mood stabilization given his addiction issues. 3. Encourage individual, group and milieu therapy. 4. Continue every 15 minute checks for safety. 5. Encourage sober living treatment after discharge at the highest level of care to which he is willing to commit. 6. Discharged to [facility] tomorrow. Involuntary Hold Information 96 Hour Hold: 96 Hour Involuntary Admission: Yes 96 Hour Hold Ending Date: 08/17/24 96 Hour Hold Ending Time: 16:30 Other Hold: Hold End Date: 08/17/24 Attestations NPU Medical Necessity Statement*: Inpatient hospitalization is medically necessary and the clinically appropriate intervention at this time. We will monitor/initiate medications and make changes as indicated. Likely length of stay 1 day. Coding Level of Care Code Acute Code for [facility] Fw Diagnoses Suicidal ideation R45.851 Depression F32.A Anxiety F41.9 Opioid use disorder, moderate, dependence F11.20 Cannabis use disorder, moderate, dependence F12.20 Methamphetamine use disorder, moderate, dependence F15.20
[2024-08-21] MEDS: OLANZapine 5 mg ODT PO (11:48)
[2024-08-21] MEDS: haloperidol 5 mg Tablet PO (13:28)
[2024-08-21 14:00] VITALS: BP 113/70; PULSE 75; RESP 16; TEMP 36.8; O2SAT 95
--- NOTE | 2024-08-21 16:36 | PC.NURSE ---
prn vistaril 50 mg given po per pt c/o stated anxiety
[2024-08-21] MEDS: propranolol 20 mg Tablet PO (20:20)
[2024-08-21] MEDS: doxepin 50 mg Capsule PO (20:20)
--- NOTE | 2024-08-21 20:39 | PC.NURSE ---
this nurse tech documented under Magaly Houston for 1900 rounding. charge nurse and warehouse delivery manager notified.
[2024-08-21 22:00] VITALS: BP 122/73; PULSE 78; RESP 17; TEMP 36.8; O2SAT 94
[2024-08-22] MEDS: calcium carbonate 500 mg Chew Tablet 1000 MG PO (00:01)
[2024-08-22] MEDS: OLANZapine 5 mg ODT PO (00:02)
[2024-08-22 06:00] VITALS: BP 114/77; PULSE 53; RESP 18; TEMP 36.5; O2SAT 94
[2024-08-22] MEDS: nicotine 4 mg lozenge MUCOUS MEM ×2 (06:27→10:40)
[2024-08-22] MEDS: gabapentin 300 mg Capsule PO (08:51)
[2024-08-22] MEDS: venlafaxine ER (24HR) 37.5 mg Capsule PO (08:52)
[2024-08-22] MEDS: buprenorphine-naloxone 4-1 mg Film 2 EACH SUBLINGUAL (08:52)
[2024-08-22 09:44] VITALS: BP 114/77; PULSE 53; RESP 18; TEMP 36.5; O2SAT 97
== END 2024-08-22 11:15 | disposition home or self-care (01) | DRG 881 ==
LOC: ER 15:58 → NP 17:07
PROVIDERS: Admitting Provider Psychiatry & Neurology Psychiatry; Emergency Provider Family Medicine; Visit Provider Psychiatry & Neurology Psychiatry
DX: F32.A Depression, unspecified (principal); F15.20 Other stimulant dependence, uncomplicated; F11.20 Opioid dependence, uncomplicated; Z59.01 Sheltered homelessness; R45.851 Suicidal ideations; F12.20 Cannabis dependence, uncomplicated; F41.9 Anxiety disorder, unspecified; E66.9 Obesity, unspecified; Z68.30 Body mass index [BMI] 30.0-30.9, adult; Z81.8 Family history of other mental and behavioral disorders
CPT/HCPCS: 36415; 36416; 71045; 80053; 80306; 80307; 82962; 85025; 87426; 93005; 97150; 97165; 99285; J0573